=== PATIENT | male | born 1960 | race Caucasian/White ===

== ENCOUNTER 2016-10-18 08:21 | Inpatient (IN) | payer OTHER ==
[~2016-10-18] VITALS: Ht 182.9 cm; Wt 86.0 kg
[~2016-10-18 08:21] MED LIST: ASPIR-LOW81 MG PO; CARVEDILOL12.5 MG PO; DILAUDID2 MG PO; DOCUSATE SODIU100 MG PO; FUROSEMIDE20 MG PO; INDOCIN50 MG PO; KADIAN30 MG PO; LIPITOR80 MG PO; MARINOL2.5 M1 PO; MORPHINE SULFAT30 M2 PO; NITROSTAT0.4 MG SL; OXAYDO5 MG PO; PRINIVIL5 MG PO; PROTONIX40 MG PO; ROXICODONE5 MG PO; ZOFRAN8 MG PO
[2016-10-18 08:59] LABS: HEMATOCRIT 49.1 % (38.0-50.0); MCH 27.9 PG (29.0-34.0); MCHC 33.6 G/DL (30.0-36.0); MCV 82.9 FL (86-99); MEAN PLAT.VOLUME 9.3 uM^3 (9.0-12.4); PLATELET COUNT 296 K/uL (156-360); RBC DIS.WIDTH-CV 16.9 % (11.8-14.6); RBC DIS.WIDTH-SD 49.3 % (39-53); RED BLOOD COUNT 5.92 M/uL (4.00-5.50); WHITE BLOOD COUNT 11.3 K/uL (4.1-10.2)
[2016-10-18 09:09] LABS: CHLORIDE 102 mEq/L (99-109); POTASSIUM 3.7 mEq/L (3.7-5.4); SODIUM 136 mEq/L (136-147)
[2016-10-18 09:11] LABS: GLUCOSE 124 mg/dL (70-99); INTER. NORMALIZED RATIO 1.1; PROTHROMBIN TIME 12.3 SEC (10.2-12.9)
[2016-10-18 09:12] LABS: ANION GAP 8 MEQ/L (2-14)
[2016-10-18 09:14] LABS: GFR ESTIMATE (CALCULATED) > 59 mL/min/; PTT 30.2 SEC (25-37)
[2016-10-18 09:15] LABS: UREA NITROGEN (BUN) 24 mg/dL (9-23)
[2016-10-18 09:19] LABS: TROP-I INTERPRETATION INDETERMINATE; TROPONIN-I 0.58 ng/mL (0.0-0.30)
[2016-10-18] MEDS ORDERED: VENTOLIN HFA18 GM IH (11:34)
[2016-10-18] MEDS ORDERED: PERCOCET 5/31 TABLET PO (11:34)
[2016-10-18] MEDS ORDERED: PROTONIX40 MG PO (11:37)
[2016-10-18] MEDS ORDERED: CLONIDINE TD (11:43)
[2016-10-18 12:52] LABS: TROP-I INTERPRETATION POSITIVE
[2016-10-18 12:53] LABS: TROPONIN-I 0.65 ng/mL (0.0-0.30)
[2016-10-18 16:06] VITALS: BP 198/110
[2016-10-18 16:10] VITALS: BP 198/110
[2016-10-18 17:05] LABS: TROP-I INTERPRETATION INDETERMINATE; TROPONIN-I 0.49 ng/mL (0.0-0.30)
[2016-10-18 19:24] VITALS: BP 180/83
[2016-10-18 22:05] VITALS: BP 152/90
[2016-10-18 23:23] LABS: TROP-I INTERPRETATION INDETERMINATE; TROPONIN-I 0.37 ng/mL (0.0-0.30)
[2016-10-19 04:24] VITALS: BP 158/97
[2016-10-19 04:49] LABS: HEMATOCRIT 45.4 % (38.0-50.0); MCH 28.2 PG (29.0-34.0); MCHC 34.1 G/DL (30.0-36.0); MCV 82.7 FL (86-99); MEAN PLAT.VOLUME 9.6 uM^3 (9.0-12.4); PLATELET COUNT 269 K/uL (156-360); RBC DIS.WIDTH-SD 48.2 % (39-53); RED BLOOD COUNT 5.49 M/uL (4.00-5.50); WHITE BLOOD COUNT 9.5 K/uL (4.1-10.2)
[2016-10-19 05:01] LABS: CHLORIDE 101 mEq/L (99-109); POTASSIUM 3.6 mEq/L (3.7-5.4); SODIUM 133 mEq/L (136-147)
[2016-10-19 05:03] LABS: GLUCOSE 109 mg/dL (70-99)
[2016-10-19 05:04] LABS: ANION GAP 7 MEQ/L (2-14)
[2016-10-19 05:05] LABS: TOTAL BILIRUBIN 0.6 mg/dL (0.0-1.0)
[2016-10-19 05:07] LABS: ALKALINE PHOSPHATASE 76 IU/L (3-129); GFR ESTIMATE (CALCULATED) > 59 mL/min/
[2016-10-19 05:08] LABS: UREA NITROGEN (BUN) 20 mg/dL (9-23)
[2016-10-19 06:51] VITALS: BP 131/87
[2016-10-19 10:15] LABS: INTERNAL CONTROL VALID? YES
[2016-10-19 11:53] VITALS: BP 168/96
[2016-10-19 15:30] VITALS: BP 114/64
[2016-10-19 19:49] VITALS: BP 169/79
[2016-10-19 23:22] VITALS: BP 126/69
[2016-10-20 03:52] VITALS: BP 168/84
[2016-10-20 05:37] LABS: MCH 28.9 PG (29.0-34.0); MCHC 34.3 G/DL (30.0-36.0); MCV 84.3 FL (86-99); MEAN PLAT.VOLUME 9.6 uM^3 (9.0-12.4); PLATELET COUNT 258 K/uL (156-360); RBC DIS.WIDTH-CV 16.2 % (11.8-14.6); RBC DIS.WIDTH-SD 50.2 % (39-53); RED BLOOD COUNT 5.22 M/uL (4.00-5.50)
[2016-10-20 06:15] LABS: ANION GAP 8 MEQ/L (2-14); CHLORIDE 100 MEQ/L (99-109); GFR ESTIMATE (CALCULATED) > 59 mL/min/; GLUCOSE 106 mg/dL (70-99); POTASSIUM 3.6 MEQ/L (3.7-5.4); SAMPLE HEMOLYSIS CHECK 0; SAMPLE ICTERIC CHECK 0; SAMPLE LIPEMIA CHECK 0; SODIUM 135 MEQ/L (136-147); UREA NITROGEN (BUN) 24 mg/dL (9-23)
[2016-10-20 07:15] VITALS: BP 144/75
[2016-10-20 11:38] VITALS: BP 137/70
[2016-10-20 15:53] VITALS: BP 129/64
[2016-10-20 20:21] VITALS: BP 136/84
[2016-10-21 00:18] VITALS: BP 134/61
[2016-10-21 04:05] VITALS: BP 122/78
[2016-10-21 06:22] LABS: ANION GAP 6 MEQ/L (2-14); CHLORIDE 101 MEQ/L (99-109); GFR ESTIMATE (CALCULATED) > 59 mL/min/; GLUCOSE 77 mg/dL (70-99); POTASSIUM 3.7 MEQ/L (3.7-5.4); SAMPLE HEMOLYSIS CHECK 0; SAMPLE ICTERIC CHECK 0; SAMPLE LIPEMIA CHECK 0; SODIUM 135 MEQ/L (136-147); UREA NITROGEN (BUN) 30 mg/dL (9-23)
[2016-10-21 08:25] VITALS: BP 116/68
[2016-10-21 11:50] VITALS: BP 116/67
[2016-10-21] MEDS ORDERED: CORDARONE200 MG PO (11:52)
== END 2016-10-21 16:07 | disposition home health service (06) | DRG 309 ==
LOC: EME 08:21 → 4EAST 12:41 → EDOF 12:41 → ENRESERV 12:46 → EDOF 12:48 → ENRESERV 14:18 → 4EAST 15:48 → ENPENDDIS 10-21 → 4EAST 10-21 16:07
PROVIDERS: Emergency Medicine; Internal Medicine
DX: I47.2 Ventricular tachycardia (principal); I49.01 Ventricular fibrillation; I16.0 Hypertensive urgency; I49.3 Ventricular premature depolarization; J44.0 Chronic obstructive pulmonary disease with (acute) lower respiratory infection; I25.10 Atherosclerotic heart disease of native coronary artery without angina pectoris; R13.10 Dysphagia, unspecified; I25.2 Old myocardial infarction; I25.5 Ischemic cardiomyopathy; E87.1 Hypo-osmolality and hyponatremia; Z95.810 Presence of automatic (implantable) cardiac defibrillator; I10 Essential (primary) hypertension; F12.90 Cannabis use, unspecified, uncomplicated; M19.011 Primary osteoarthritis, right shoulder; G89.29 Other chronic pain; M54.9 Dorsalgia, unspecified; M75.101 Unspecified rotator cuff tear or rupture of right shoulder, not specified as traumatic; M10.9 Gout, unspecified; F17.210 Nicotine dependence, cigarettes, uncomplicated; E78.5 Hyperlipidemia, unspecified; Z95.5 Presence of coronary angioplasty implant and graft; Z85.01 Personal history of malignant neoplasm of esophagus; Z91.14 Patient's other noncompliance with medication regimen; Z92.21 Personal history of antineoplastic chemotherapy; Z91.19 Patient's noncompliance with other medical treatment and regimen
CPT/HCPCS: 71020; 74230; 80048; 80053; 83735; 84484; 85027; 85610; 85730; 87449; 92526 GN; 92610 GN; 92611 GN; 93005; 94640; 94760; 99202; 99281; 99285; J1644; J2270; J2405; J3480

== ENCOUNTER 2017-07-28 18:16 | Observation (INO) | payer OTHER ==
[~2017-07-28] VITALS: Ht 182.9 cm; Wt 88.0 kg
[~2017-07-28 18:16] MED LIST changes: +CLONIDINE TD; +CORDARONE200 MG PO; +PERCOCET 5/31 TABLET PO; +VENTOLIN HFA18 GM IH
[2017-07-28 19:17] LABS: BASOPHIL (%) 0.2 % (0-1); EOSINOPHIL (%) 0 % (0-5); HEMATOCRIT 47.7 % (38.0-50.0); HEMOGLOBIN 16.4 G/DL (12.5-16.6); IMMATURE GRANULOCYTE (%) 0.5 % (0.0-0.7); LYMPHOCYTE (%) 11.1 % (15-42); LYMPHOCYTE COUNT 1.2 K/uL (1.0-2.8); MCHC 34.4 G/DL (30.0-36.0); MCV 81.5 FL (86-99); MONOCYTE (%) 7.8 % (3-12); MONOCYTE COUNT 0.9 K/uL (0-0.8); NEUTROPHIL (%) 80.4 % (45-76); NEUTROPHIL COUNT 8.8 K/uL (1.8-6.4); PLATELET COUNT 331 K/uL (156-360); RBC DIS.WIDTH-CV 16.4 % (11.8-14.6); RBC DIS.WIDTH-SD 47.8 % (39-53); RED BLOOD COUNT 5.85 M/uL (4.00-5.50); WHITE BLOOD COUNT 10.9 K/uL (4.1-10.2)
[2017-07-28 19:28] LABS: CHLORIDE 103 mEq/L (99-109); POTASSIUM 3.6 mEq/L (3.7-5.4); SODIUM 139 mEq/L (136-147)
[2017-07-28 19:29] LABS: ALBUMIN 4.2 g/dL (3.2-4.8)
[2017-07-28 19:32] LABS: GLUCOSE 121 mg/dL (70-99); TOTAL BILIRUBIN 0.7 mg/dL (0.0-1.0); TOTAL PROTEIN 8.3 g/dL (6.4-8.3)
[2017-07-28 19:34] LABS: TROP-I INTERPRETATION NEGATIVE; TROPONIN-I 0.13 ng/mL (0.0-0.30)
[2017-07-28 19:35] LABS: ALKALINE PHOSPHATASE 97 IU/L (3-129)
[2017-07-28 19:36] LABS: CREATININE 0.9 mg/dL (0.6-1.3); GFR ESTIMATE (CALCULATED) > 59 mL/min/ (58.99-99999)
[2017-07-28 19:37] LABS: AST (GOT) 18 IU/L (2-34); UREA NITROGEN (BUN) 15 mg/dL (9-23)
[2017-07-28 19:38] LABS: ALT (GPT) 12 IU/L (3-49)
[2017-07-28 19:39] LABS: LIPASE 11 U/L (1.0-51.0)
[2017-07-28 23:41] VITALS: BP 186/108
[2017-07-29 01:25] LABS: TROP-I INTERPRETATION NEGATIVE; TROPONIN-I 0.18 ng/mL (0.0-0.30)
[2017-07-29 03:53] VITALS: BP 176/99
[2017-07-29 07:39] LABS: HEMATOCRIT 44.7 % (38.0-50.0); HEMOGLOBIN 14.8 G/DL (12.5-16.6); MCH 27.1 PG (29.0-34.0); MCHC 33.1 G/DL (30.0-36.0); MCV 81.7 FL (86-99); PLATELET COUNT 332 K/uL (156-360); RBC DIS.WIDTH-SD 48.1 % (39-53); RED BLOOD COUNT 5.47 M/uL (4.00-5.50); WHITE BLOOD COUNT 10.5 K/uL (4.1-10.2)
[2017-07-29 08:15] LABS: TROP-I INTERPRETATION NEGATIVE; TROPONIN-I 0.14 ng/mL (0.0-0.30)
[2017-07-29 08:33] LABS: CK-MB 3.6 ng/mL (0.0-4.9)
[2017-07-29 08:35] LABS: CHLORIDE 98 MEQ/L (99-109); CREATINE KINASE 90 IU/L (1-294); CREATININE 0.8 MG/DL (0.6-1.3); GFR ESTIMATE (CALCULATED) > 59 mL/min/ (58.99-99999); GLUCOSE 115 mg/dL (70-99); POTASSIUM 3.8 MEQ/L (3.7-5.4); SODIUM 133 MEQ/L (136-147); TOTAL CK 90 IU/L (1-294); UREA NITROGEN (BUN) 17 mg/dL (9-23)
[2017-07-29 11:59] VITALS: BP 191/103
[2017-07-29 16:18] VITALS: BP 174/92
[2017-07-29] MEDS ORDERED: LISINOPRIL10 MG PO (17:08)
[2017-07-29 17:45] LABS: TROP-I INTERPRETATION NEGATIVE; TROPONIN-I 0.12 ng/mL (0.0-0.30)
[2017-07-29 19:00] VITALS: BP 194/100
[2017-07-29 23:39] VITALS: BP 192/95
[2017-07-30] VITALS (7 sets, daily range): BP systolic 132–195; BP diastolic 69–98
[2017-07-30 05:44] LABS: HEMATOCRIT 44.6 % (38.0-50.0); MCH 27.2 PG (29.0-34.0); MCHC 33.6 G/DL (30.0-36.0); MCV 80.8 FL (86-99); PLATELET COUNT 360 K/uL (156-360); RBC DIS.WIDTH-CV 15.8 % (11.8-14.6); RBC DIS.WIDTH-SD 46.4 % (39-53); RED BLOOD COUNT 5.52 M/uL (4.00-5.50); WHITE BLOOD COUNT 8.9 K/uL (4.1-10.2)
[2017-07-30 06:43] LABS: CHLORIDE 99 MEQ/L (99-109); CREATININE 0.8 MG/DL (0.6-1.3); GFR ESTIMATE (CALCULATED) > 59 mL/min/ (58.99-99999); GLUCOSE 102 mg/dL (70-99); SODIUM 132 MEQ/L (136-147); UREA NITROGEN (BUN) 19 mg/dL (9-23)
[2017-07-31 03:37] VITALS: BP 118/70
[2017-07-31 05:00] LABS: HEMOGLOBIN 14.6 G/DL (12.5-16.6); MCH 27.1 PG (29.0-34.0); MCHC 33.2 G/DL (30.0-36.0); MCV 81.8 FL (86-99); PLATELET COUNT 286 K/uL (156-360); RBC DIS.WIDTH-CV 15.8 % (11.8-14.6); RBC DIS.WIDTH-SD 47.2 % (39-53); RED BLOOD COUNT 5.38 M/uL (4.00-5.50); WHITE BLOOD COUNT 7.7 K/uL (4.1-10.2)
[2017-07-31 06:38] LABS: CHLORIDE 99 MEQ/L (99-109); CREATININE 1.1 MG/DL (0.6-1.3); GFR ESTIMATE (CALCULATED) > 59 mL/min/ (58.99-99999); GLUCOSE 96 mg/dL (70-99); POTASSIUM 3.7 MEQ/L (3.7-5.4); SODIUM 134 MEQ/L (136-147); UREA NITROGEN (BUN) 28 mg/dL (9-23)
[2017-07-31 09:02] VITALS: BP 189/96
[2017-07-31 10:07] LABS: HEMOGLOBIN A1c (GLYCOHEMOGLOB) 5.5 % (Below 5.7)
[2017-07-31 11:46] VITALS: BP 182/99
[2017-07-31 16:27] VITALS: BP 126/74
== END 2017-07-31 18:51 | disposition short-term general hospital (02) ==
LOC: EME 18:16 → EDOF 21:39 → 4SOUTH 21:39 → EDOF 21:39 → ENRESERV 21:42 → 4SOUTH 23:36 → ENRESERV 07-30 16:52 → 4EAST 07-30 18:06
PROVIDERS: Emergency Medicine; Hospitalist; Physician Assistant Medical
DX: I25.119 Atherosclerotic heart disease of native coronary artery with unspecified angina pectoris (principal); I25.2 Old myocardial infarction; I25.5 Ischemic cardiomyopathy; I11.9 Hypertensive heart disease without heart failure; I43 Cardiomyopathy in diseases classified elsewhere; Z95.810 Presence of automatic (implantable) cardiac defibrillator; Z91.14 Patient's other noncompliance with medication regimen; Z91.19 Patient's noncompliance with other medical treatment and regimen; E87.6 Hypokalemia; E78.5 Hyperlipidemia, unspecified; Z85.01 Personal history of malignant neoplasm of esophagus; Z92.21 Personal history of antineoplastic chemotherapy; Z92.3 Personal history of irradiation; Z95.5 Presence of coronary angioplasty implant and graft; J44.9 Chronic obstructive pulmonary disease, unspecified; I49.01 Ventricular fibrillation; Z86.73 Personal history of transient ischemic attack (TIA), and cerebral infarction without residual deficits; G89.29 Other chronic pain; M54.5 Low back pain; F17.200 Nicotine dependence, unspecified, uncomplicated; F12.90 Cannabis use, unspecified, uncomplicated; Z80.1 Family history of malignant neoplasm of trachea, bronchus and lung
CPT/HCPCS: 71045; 71275; 74176; 80048; 80053; 82550; 82553; 83036; 83690; 84484; 85025; 85027; 93005; 99202; 99281; 99285; C1760; C1769; C1894; G0378; J0780; J1644; J1885; J2250; J2270; J2405; J3010; J7030; Q0164

== ENCOUNTER 2017-09-05 18:30 | Observation (INO) | payer OTHER ==
[~2017-09-05] VITALS: Ht 182.9 cm; Wt 89.8 kg
[~2017-09-05 18:30] MED LIST changes: +LISINOPRIL10 MG PO
[2017-09-05 18:57] LABS: HEMATOCRIT 28.5 % (38.0-50.0); HEMOGLOBIN 9.1 G/DL (12.5-16.6); MCH 26.4 PG (29.0-34.0); MCHC 31.9 G/DL (30.0-36.0); MCV 82.6 FL (86-99); PLATELET COUNT 407 K/uL (156-360); RBC DIS.WIDTH-CV 17.7 % (11.8-14.6); RBC DIS.WIDTH-SD 53.2 % (39-53); RED BLOOD COUNT 3.45 M/uL (4.00-5.50); WHITE BLOOD COUNT 7.3 K/uL (4.1-10.2)
[2017-09-05 19:07] LABS: CHLORIDE 106 mEq/L (99-109); SODIUM 138 mEq/L (136-147)
[2017-09-05 19:09] LABS: GLUCOSE 114 mg/dL (70-99); INTER. NORMALIZED RATIO 1.2
[2017-09-05 19:12] LABS: PTT 28.8 SEC (25-37)
[2017-09-05 19:13] LABS: CREATININE 0.9 mg/dL (0.6-1.3); GFR ESTIMATE (CALCULATED) > 59 mL/min/ (58.99-99999)
[2017-09-05 19:14] LABS: UREA NITROGEN (BUN) 9 mg/dL (9-23)
[2017-09-05 19:20] LABS: TROP-I INTERPRETATION NEGATIVE; TROPONIN-I 0.04 ng/mL (0.0-0.30)
[2017-09-05] MEDS ORDERED: LO-DOSE ASPIRIN81 M2 PO (22:30)
[2017-09-05] MEDS ORDERED: PRINIVIL5 MG PO (22:30)
[2017-09-06] VITALS (7 sets, daily range): BP systolic 149–197; BP diastolic 67–93
[2017-09-06 03:23] LABS: TROP-I INTERPRETATION NEGATIVE; TROPONIN-I 0.03 ng/mL (0.0-0.30)
[2017-09-06 09:19] LABS: TROP-I INTERPRETATION NEGATIVE; TROPONIN-I 0.04 ng/mL (0.0-0.30)
[2017-09-07 01:48] VITALS: BP 192/92
[2017-09-07 05:13] VITALS: BP 186/88
[2017-09-07 07:55] VITALS: BP 172/88
[2017-09-07 09:23] LABS: BASOPHIL (%) 0.5 % (0-1); EOSINOPHIL (%) 0.2 % (0-5); HEMATOCRIT 31.7 % (38.0-50.0); IMMATURE GRANULOCYTE (%) 0.5 % (0.0-0.7); LYMPHOCYTE (%) 11.9 % (15-42); LYMPHOCYTE COUNT 0.8 K/uL (1.0-2.8); MCH 25.6 PG (29.0-34.0); MCHC 31.5 G/DL (30.0-36.0); MCV 81.1 FL (86-99); MONOCYTE COUNT 0.4 K/uL (0-0.8); NEUTROPHIL (%) 80.9 % (45-76); NEUTROPHIL COUNT 5.2 K/uL (1.8-6.4); PLATELET COUNT 496 K/uL (156-360); RBC DIS.WIDTH-CV 17.2 % (11.8-14.6); RBC DIS.WIDTH-SD 50.9 % (39-53); RED BLOOD COUNT 3.91 M/uL (4.00-5.50); WHITE BLOOD COUNT 6.5 K/uL (4.1-10.2)
[2017-09-07 10:44] VITALS: BP 170/90
[2017-09-07] MEDS ORDERED: CARVEDILOL25 MG PO (10:47)
[2017-09-07 11:52] VITALS: BP 169/89
[2017-09-07] MEDS ORDERED: LISINOPRIL20 MG PO (14:29)
== END 2017-09-07 16:22 | disposition home or self-care (01) ==
LOC: EME 18:30 → EDOF 22:59 → 4SOUTH 22:59 → EDOF 22:59 → ENRESERV 23:01 → 4SOUTH 09-06 00:59
PROVIDERS: Emergency Medicine; Nurse Practitioner Family; Physician Assistant
DX: R07.89 Other chest pain (principal); I25.10 Atherosclerotic heart disease of native coronary artery without angina pectoris; Z95.1 Presence of aortocoronary bypass graft; Z95.5 Presence of coronary angioplasty implant and graft; I25.5 Ischemic cardiomyopathy; J90 Pleural effusion, not elsewhere classified; Z95.810 Presence of automatic (implantable) cardiac defibrillator; Z91.14 Patient's other noncompliance with medication regimen; Z91.19 Patient's noncompliance with other medical treatment and regimen; I11.9 Hypertensive heart disease without heart failure; K52.9 Noninfective gastroenteritis and colitis, unspecified; Z86.73 Personal history of transient ischemic attack (TIA), and cerebral infarction without residual deficits; J44.9 Chronic obstructive pulmonary disease, unspecified; Z85.01 Personal history of malignant neoplasm of esophagus; E66.9 Obesity, unspecified; Z68.26 Body mass index [BMI] 26.0-26.9, adult; E78.5 Hyperlipidemia, unspecified; F17.210 Nicotine dependence, cigarettes, uncomplicated; F12.90 Cannabis use, unspecified, uncomplicated; Z79.82 Long term (current) use of aspirin; Z80.1 Family history of malignant neoplasm of trachea, bronchus and lung
CPT/HCPCS: 71046; 71275; 74019; 80048; 84484; 85025; 85027; 85610; 85730; 93005; 94640; 94799; 99281; 99285; G0378; J0780; J1644; J2270; J2405; J2765; J7030; Q0169